=== PATIENT | female | born 1975 | race Caucasian/White ===

== ENCOUNTER → 2016-11-21 | Outpatient (CLI) | payer OTHER | LOC: FIMAGING 12:18 | PROVIDERS: ATTEND Obstetrics & Gynecology | DX: O09.522 Supervision of elderly multigravida, second trimester (principal); Z3A.19 19 weeks gestation of pregnancy ==

== ENCOUNTER → 2017-02-06 | Outpatient (CLI) | payer OTHER | LOC: FIMAGING 12:16 | PROVIDERS: ATTEND Obstetrics & Gynecology | DX: O09.523 Supervision of elderly multigravida, third trimester (principal); Z3A.30 30 weeks gestation of pregnancy; Z87.59 Personal history of other complications of pregnancy, childbirth and the puerperium ==

== ENCOUNTER → 2017-03-06 | Outpatient (CLI) | payer OTHER | LOC: FIMAGING 11:35 | PROVIDERS: ATTEND Obstetrics & Gynecology | DX: O09.523 Supervision of elderly multigravida, third trimester (principal); Z3A.34 34 weeks gestation of pregnancy ==

== ENCOUNTER 2017-04-04 18:50 | Inpatient (IN) | payer OTHER ==
--- NOTE | 2017-04-04 20:15 | SOAPPROG ---
SOAP Progress Note Assessment/Plan: Assessment: 41 yo @ 38.3 weeks presents with bleeding following cervical exam and contractions. She is here for a labor check. Plan: Patient will have NST, she may go for a walk, cervix will be re-evaluated following 1-2 hours. 04/04/17 20:11 Subjective: Patient reports that she had clinic appointment at 4PM today with Dr. Castillo. Dr. Castillo "stripped membranes." Since appointment, patient reports small amount of vaginal bleeding and cramping. Objective: FHR: 130, cat I [place]: q4min Physical Exam - Physical Exam General Appearance: alert, no apparent distress Neck: supple Respiratory: lungs clear, normal breath sounds Cardiac/Chest: regular rate, rhythm Abdomen: normal bowel sounds, non-tender Pelvic Exam: other (CE:4-5cm/50%/-3/posterior) Rectal: deferred Skin: normal color, warm/dry ICD10 Worksheet Patient Problems: Problems Problem Status Onset Irregular contractions Acute - ICD10 Problem Qualifiers (1) Irregular contractions
[2017-04-04] MEDS ORDERED: EPSOM SALT 454 GM TP PRN (21:44)
[2017-04-04] MEDS ORDERED: TERBUTALINE SULFATE 1 MG/ML VIAL IV PRN (21:44)
[2017-04-04] MEDS ORDERED: OLIVE OIL 118 ML BTL MISC PRN (21:44)
[2017-04-04] MEDS ORDERED: LR 1,000 ML IV PRN (21:44)
[2017-04-04] MEDS ORDERED: OXYTOCIN 20 UNIT in LR 1,000 ML IV PRN (21:44)
[2017-04-04 21:55] LABS: % IMMATURE GRANULYOCYTES 0.4 % (0.0-1.1); ABSOLUTE IMMATURE GRANULOCYTES 0.04 10^3/uL (0.00-0.10); ADD DIFF? NO; ADD MORPH? NO; ADD SCAN? NO; ATYPICAL LYMPHOCYTE FLAG 10 (0-99); FRAGMENT RBC FLAG 0 (0-99); HEMOGLOBIN 13.4 g/dL (12.6-16.3); LEFT SHIFT FLG 0 (0-99); LIPEMIA HEMOLYSIS FLAG 90 (0-99); MEAN CELL HEMOGLOBIN 32.3 pg (27.9-34.1); MEAN CELL HEMOGLOBIN CONCENTR. 35.3 g/dL (32.4-36.7); MEAN CELL VOLUME 91.6 fL (81.5-99.8); MEAN PLATELET VOLUME 12.6 fL (8.7-11.7); PLATELET CLUMPS FLAG 20 (0-99); PLATELET COUNT 139 10^3/uL (150-400); RED BLOOD CELL COUNT 4.15 10^6/uL (4.18-5.33); RED CELL DISTRIBUTION WIDTH 13.2 % (11.5-15.2)
--- NOTE | 2017-04-04 22:04 | PDGENHP ---
History and Physical - Chief Complaint contractions, bloody show - History of Present Illness 41-year-old @ 38.3 weeks gestation (EDC 04/15/17 ) who presents with contractions and bloody show following clinic visit and cervical exam with Dr. Castillo today. Current is complicated by advance maternal age, hypothyroidism (Levothyroxine) and depression (Wellbutrin). Prior complicated by HELLP (delivered at 36.6 weeks, induction). O+ / Antibody screen negative / RPR NR / Rubella Immune / HBsAg Neg / HIV Neg / Pap Neg / GC Neg/ Neg / MSAFP Neg / cfDNA Neg / 1 Hr GTT 104 / GBS Negative. History Information - Allergies/Home Medication List Allergies/Adverse Reactions: No Known Allergies Allergy (Verified 12/06/14 08:17) Home Medications: Wellbutrin Xl 12/18/13 [Last Taken Unknown] Loestrin 21 1-20 Tablet 12/06/14 [Last Taken Unknown] I have personally reviewed and updated: family history, medical history, social history, surgical history - Past Medical History no pertinent PMH - Surgical History Reports: no pertinent surgical hx - Family History Positive for: non-pertinent - Social History Smoking Status: Never smoked Alcohol Use: None Drug Use: None Review of Systems Review of Systems: ROS: 10pt was reviewed & negative except for what was stated in HPI & below Physical Exam Physical Exam: Constitutional: no apparent distress, not in pain Ears, Nose, Mouth, Throat: moist mucous membranes Cardiovascular: regular rate and rhythym, no murmur, rub, or gallop Respiratory: no respiratory distress, no rales or rhonchi, clear to auscultation Gastrointestinal: normoactive bowel sounds, soft, non-tender abdomen Genitourinary: other (CE: 5-6cm/75%/-3) Skin: warm, normal color Musculoskeletal: full muscle strength, no muscle tenderness Neurologic: AAOx3, sensation intact bilaterally, weakness Psychiatric: interacting appropriately, not anxious Lab Data & Imaging Review 04/04/17 21:45 Assessment & Plan Assessment: 41 yo @ 38.3 with labor, GBS negative. Plan: 1. Admit for labor 2. Epidural PRN 3. GBS negative 4. AMA - negative genetic screen, normal surveillance 5. H/o HELLP, uncomplicated current , will check labs
[2017-04-04] MEDS ORDERED: ACETAMINOPHEN 325 MG TAB PO PRN (22:07)
[2017-04-04] MEDS ORDERED: TERBUTALINE SULFATE 1 MG/ML VIAL ONE (22:50)
[2017-04-04] MEDS ORDERED: AMMONIA AROMATIC 1 EACH AMP IH ONE (22:50)
[2017-04-04] MEDS ORDERED: LIDOCAINE 1% 300 MG/30 ML SDV ONE (22:50)
[2017-04-04] MEDS ORDERED: OLIVE OIL 118 ML BTL ONE (22:50)
[2017-04-04] MEDS ORDERED: OXYTOCIN 10 UNIT/ML VIAL ONE (22:51)
[2017-04-04] MEDS ORDERED: MISOPROSTOL 200 MCG TAB ONE (22:52)
--- NOTE | 2017-04-05 05:40 | OBPROG ---
Labor Progress Note Assessment/Plan: Assessment: 41 yo @ 38.3 weeks presents with bleeding following cervical exam and contractions. She is here for a labor check. Plan: Patient will have NST, she may go for a walk, cervix will be re-evaluated following 1-2 hours. 04/04/17 20:11 04/05/17 05:38 Plan for epidural then AROM Subjective/Intrapartum Course: 04/05/17 05:38 Feels more pressure and pain in back. Requesting epidural. Objective: 04/04/17 21:45 Patient ABO/Rh O POSITIVE 04/04/17 21:45 - SVE Dilation (cm): 7 Effacement (%): 90 Station: -1 Membranes: Intact - FHR Assessment Perry FHR (bpm): 120 FHR Pattern Variability: Moderate FHR Category: 1 Oxytocin Orders Assessment - Pre-Induction/Augmentation Assessment Gestational Age: 38 week(s) and 3 day(s) ICD10 Worksheet Patient Problems: Problems Problem Status Onset Irregular contractions Acute - ICD10 Problem Qualifiers (1) Irregular contractions
[2017-04-05] MEDS ORDERED: PHENYLEPHRINE HCL 100 MCG/ML SYR ONE (05:50)
[2017-04-05] MEDS ORDERED: BUPIVACAINE 0.25% 30 ML SDV ONE (05:50)
[2017-04-05] MEDS ORDERED: fentaNYL 2MCG/ML/BUP 0.1% RTU 100 ML BAG EP ONE (05:50)
[2017-04-05] MEDS ORDERED: fentaNYL 100 MCG/2 ML INJ ONE (05:51)
--- NOTE | 2017-04-05 06:55 | PREANESOB ---
Obstetric Pre-Anesthesia Info - General Info Proposed Procedure: Labor and delivery. : 3 Para: 3 TERI: 04/15/17 Gestational Age: 38 week(s) and 3 day(s) - Info Status: Full Term Monitors: External FHR Baseline (bpm): 135 FHR Pattern: Reassuring - Labor Status Cervical Dilation per last OB SVE: 7 Station per last OB SVE: -1 Indications for Labor Analgesia: Pain Control Labor Epidural: Proposed Anesthesia ROS: Prior labor epidural x 2. Prior general anesthesia x2 for foot surgery. On thyroid supplement. Allergies/Adverse Reactions: Allergy/AdvReac Type Severity Reaction Status Date / Time No Known Allergies Allergy Verified 12/06/14 08:17 Home Medications: Medication Instructions Recorded Wellbutrin Xl 12/18/13 Cephalexin [Keflex] 500 mg PO QID #28 cap 12/06/14 Loestrin 21 1-20 Tablet 12/06/14 Visit Medications: Generic Name Dose Route Start Last Admin Trade Name Freq PRN Reason Stop Dose Admin Acetaminophen 325 - 650 mg 04/04/17 22:07 04/04/17 22:14 Tylenol PO 10/01/17 22:06 650 mg Q3HRS PRN Administration Pain, Mild Lactated Ringer's 1,000 mls @ 0 mls/hr 04/04/17 21:44 Lr IV 10/01/17 21:43 PRN PRN SEE PROTOCOL CONDITIONS Protocol Per Protocol Oxytocin 20 unit/ Lactated 1,002 mls @ 150 mls/hr 04/04/17 21:44 Ringer's IV PRN PRN Post- bleeding Ibuprofen 600 mg 04/04/17 21:44 Motrin PO 10/01/17 21:43 Q6HRS PRN post , inflammation Magnesium Sulfate 454 gm 04/04/17 21:44 Epsom Salt TP 10/01/17 21:43 Q1H PRN perineal discomfort [place] Oil 118 ml 04/04/17 21:44 Sweet Oil MISC 10/01/17 21:43 ONCE PRN perineal massage Terbutaline Sulfate 0.25 mg 04/04/17 21:44 Brethine IV 10/01/17 21:43 ONCE PRN Tachysystole Discontinued Medications Generic Name Dose Route Start Last Admin Trade Name Freq PRN Reason Stop Dose Admin Ammonia (Aromatic Spirit) Confirm 04/04/17 22:50 Ammonia Aromatic Administered 04/04/17 22:51 Dose 1 each IH .STK-MED ONE Bupivacaine HCl Confirm 04/05/17 05:50 Sensorcaine 0.25% Sdv Administered 04/05/17 05:51 Dose 30 ml .ROUTE .STK-MED ONE Ephedrine Sulfate Confirm 04/04/17 22:50 Ephedrine Sulfate Administered 04/04/17 22:51 Dose 50 mg .ROUTE .STK-MED ONE Fentanyl Confirm 04/05/17 05:51 Sublimaze Administered 04/05/17 05:52 Dose 100 mcg .ROUTE .STK-MED ONE Fentanyl/Bupivacaine HCl Confirm 04/05/17 05:50 Fentanyl/Bupivacaine/Ns 2 Mcg/Ml 0.1% (Premix Administered 04/05/17 05:51 Dose 100 ml EP .STK-MED ONE Lidocaine HCl Confirm 04/04/17 22:50 Lidocaine Hcl 1% Administered 04/04/17 22:51 Dose 300 mg .ROUTE .STK-MED ONE Misoprostol Confirm 04/04/17 22:52 Cytotec Administered 04/04/17 22:53 Dose 1,000 mcg .ROUTE .STK-MED ONE [place] Oil Confirm 04/04/17 22:50 Sweet Oil Administered 04/04/17 22:51 Dose 118 ml .ROUTE .STK-MED ONE Oxytocin Confirm 04/04/17 22:51 Pitocin Administered 04/04/17 22:52 Dose 40 unit .ROUTE .STK-MED ONE Phenylephrine HCl Confirm 04/05/17 05:50 Neosynephrine Administered 04/05/17 05:51 Dose 1,000 mcg .ROUTE .STK-MED ONE Terbutaline Sulfate Confirm 04/04/17 22:50 Brethine Administered 04/04/17 22:51 Dose 1 mg .ROUTE .STK-MED ONE - Anesthesia History Response to Local Anesthetics: Normal Anesthesia & Operative History: No Prior Problems Family Anesthesia History: Negative - Social History Substance Use/Abuse: Denies - Vital Signs Blood Pressure: 107/71 Heart Rate: 84 Height/Weight (Nursing): Height 170.18 cm Weight 70.307 kg - Focused Exam Neck exam: FROM Mallampati Score: Class 1 Mouth exam: normal dental/mouth exam Pulmonary: no respiratory distress Cardiovascular: regular rate and rhythym Labs: 04/04/17 21:45 Patient ABO/Rh O POSITIVE 04/04/17 21:45 - Plan Anesthetic Plan: JANE Consent Signed and on Chart: Yes Patient/Guardian Understands and Agrees to Plan: Yes Urgent/Emergent Case: Anes eval completed preop but documented later for safe timely pt care
[2017-04-05] MEDS ORDERED: fentaNYL 2MCG/ML/BUP 0.1% RTU 100 ML EP SCH (07:00)
[2017-04-05] MEDS ORDERED: ONDANSETRON 4 MG/2 ML VIAL IVP PRN ×2 (07:00→07:36)
[2017-04-05] MEDS ORDERED: PHENYLEPHRINE HCL 100 MCG/ML SYR IVP PRN (07:00)
[2017-04-05] MEDS ORDERED: LR 500 ML IV SCH (07:00)
--- NOTE | 2017-04-05 07:00 | POSTANESTH ---
Post Anesthetic Evaluation Cardiovascular Status: Normal, Stable, Similar to Pre-Op Cond Respiratory Status: Normal, Stable, Similar to Pre-op Cond. Level of Consciousness/Mental Status: Can Participate in Eval, Alert and Oriented Pain Control: Adequate, Prn Tx Ordered Nausea/Vomiting Control: Adequate, Prn Tx Ordered Complications Possibly Related to Anesthesia: None Noted
--- NOTE | 2017-04-05 08:55 | OBPROG ---
Labor Progress Note Assessment/Plan: Assessment: 41 y/o @ 38 4/7 wks in active labor Plan: s/p epidural, pt is comfortable FHTs - Cat I tracing Will have pt labor down Anticipate 04/05/17 08:49 Subjective/Intrapartum Course: 04/05/17 05:38 Feels more pressure and pain in back. Requesting epidural. 04/05/17 09:14 s/p epidural, pt is comfortable Objective: 04/04/17 21:45 Patient ABO/Rh O POSITIVE 04/04/17 21:45 Temp Pulse Resp BP Pulse Ox 84 107/71 04/05/17 06:59 04/05/17 06:59 - SVE Dilation (cm): 10 Effacement (%): 100 Station: +1 Membranes: AROM Amniotic Fluid Color: Clear - Contraction Pattern Assessment Current Contraction Pattern: Regular, Irregular - FHR Assessment Perry FHR (bpm): 140 FHR Pattern Variability: Moderate FHR Category: 1 - Procedures Non-surgical Procedures: Amniotomy Oxytocin Orders Assessment - Pre-Induction/Augmentation Assessment Gestational Age: 38 week(s) and 3 day(s) ICD10 Worksheet Patient Problems: Problems Problem Status Onset Irregular contractions Acute
[2017-04-05] MEDS ORDERED: SIMETHICONE 80 MG TAB CHEW PO PRN (10:05)
[2017-04-05] MEDS ORDERED: DOCUSATE SODIUM 100 MG CAP PO PRN (10:05)
[2017-04-05] MEDS ORDERED: HYDROCORTISONE 0.5% CREAM TP PRN (10:05)
[2017-04-05] MEDS ORDERED: HYDROCODONE/APAP 5/325 TAB PO PRN (10:05)
[2017-04-05] MEDS ORDERED: IBUPROFEN 600 MG TAB PO PRN (10:06)
--- NOTE | 2017-04-05 10:09 | OBDEL ---
Info Type: Vaginal Presentation at Delivery: Vertex L&D Analgesia/Anesthesia Type: Epidural GBS+: No Intrapartum Medications: Generic Name Dose Route Start Last Admin Trade Name Freq PRN Reason Stop Dose Admin Acetaminophen 325 - 650 mg 04/04/17 22:07 04/04/17 22:14 Tylenol PO 10/01/17 22:06 650 mg Q3HRS PRN Administration Pain, Mild - Hospital Course Intrapartum: 04/05/17 05:38 Feels more pressure and pain in back. Requesting epidural. 04/05/17 09:14 s/p epidural, pt is comfortable Indications for Delivery: Spontaneous Labor Vaginal Delivery - Delivery Provider Delivery Physician/CNM: Mable Becerril - Labor and Delivery Onset of Contractions Date: 04/04/17 Onset of Contractions Time: 17:00 Onset of Contractions Type: Spontaneous Rupture of Membranes Date: 04/05/17 Rupture of Membranes Time: 07:00 Rupture of Membranes Type: Artificial Amniotic Fluid Color: Clear Dilation Complete Date: 04/05/17 Dilation Complete Time: 08:40 Placenta Delivery Date: 04/05/17 Placenta Delivery Time: 09:48 Total Hours of Labor: 16 Non-surgical Procedures: Amniotomy Laceration: 2nd Degree Repair: 3-0, Vicryl Vaginal Sponge Count Correct: Yes Vaginal Needle Count Correct: Yes Vaginal Sweep Performed: Yes EBL: 400 cc Delivery Events: Nuchal Cord (Loose x 1- slipped over perineum), Other (Specify ) (True knot) Delivery Comment: Uterus was boggy after delivery of placenta with brisk bleeding. IM Pitocin was given as well as 800 mcg Cytotec NH. Uterus became firm and less bleeding noted. [place] Data [place] Delivery Date: 04/05/17 Delivery Time: 09:40 TERI: 04/15/17 Gestational Age: 38 week(s) and 4 day(s) Sex of Infant: Male Score (1 Min): 9 Score (5 Min): 9 ICD10 Worksheet Patient Problems: Problems Problem Status Onset Irregular contractions Acute (spontaneous vaginal delivery) Acute - ICD10 Problem Qualifiers (1) (spontaneous vaginal delivery)
[2017-04-05] MEDS: IBUPROFEN 600 MG TAB PO PRN ×3 (10:23→22:53)
[2017-04-05 20:44] VITALS: PULSE 73; RESP 16; O2SAT 97
[2017-04-06] MEDS: IBUPROFEN 600 MG TAB PO PRN ×2 (04:59→11:33)
[2017-04-06 10:23] VITALS: BP 101/64; TEMP 98
--- NOTE | 2017-04-06 11:53 | OBGCSDC ---
General Delivery Information - General Info : 3 Para: 4 Abortions: 0 Type: Vaginal L&D Analgesia/Anesthesia Type: Epidural Admission Date: 04/04/17 Labs: Patient ABO/Rh O POSITIVE 04/04/17 21:45 Hct 38.0 % (38.0-47.0) 04/04/17 21:45 - Hospital Course Intrapartum: 04/05/17 05:38 Feels more pressure and pain in back. Requesting epidural. 04/05/17 09:14 s/p epidural, pt is comfortable : 04/06/17 11:48 S) Pt doing well, she denies any heavy bleeding. 04/06/17 14:47 (late entry from 9:45am) S)Pt doing well, denies any pain or heavy bleeding. She is . She desires d/c home at this time. O) constitutional: WNWF, A&Ox3 heart: RRR, no murmur Chest: CTA-B Abdomen: soft, nontender uterus: firm @ U-2 perineum: healing well lochia: min rubra extremities: WNL, neg edema, neg negro's sign neuro: grossly normal A) [id number] s/p PPD#1 P) d/c home at this time routine PP care pelvic rest x 6 weeks cont danger S&S discussed RTO at 4/6 weeks Vaginal - Delivery Provider Delivery Physician/CNM: Mable Becerril - Diagnosis Labor: Spontaneous Rupture of Membranes Type: Artificial Amniotic Fluid Color: Clear Laceration: 2nd Degree Repair: 3-0, Vicryl Delivery Events: Nuchal Cord (Loose x 1- slipped over perineum), Other (Specify ) (True knot) - Procedures Non-surgical Procedures: Amniotomy - Delivery Non-surgical Procedures: Amniotomy EBL: 400 cc [place] Data [place] Delivery Date: 04/05/17 Delivery Time: 09:40 TERI: 04/15/17 Gestational Age: 38 week(s) and 5 day(s) Sex of : Male Weight (gm): 2800 g Score (1 Min): 9 Score (5 Min): 9 Discharge Information - Discharge Information Prescriptions: Ibuprofen [Motrin (*)] 600 mg PO Q6HRS PRN #30 tab PRN Reason: Pain, Inflammatory Condition: Good Instruction/Follow Up: Four Weeks, Six Weeks
== END 2017-04-06 12:00 | disposition home or self-care (01) | DRG 775 ==
LOC: OBSVTOIN 18:50 → FLD 18:50 → FOB 04-05 14:43
PROVIDERS: ADMIT Obstetrics & Gynecology Gynecology; ATTEND Obstetrics & Gynecology
DX: O70.1 Second degree perineal laceration during delivery (principal); O69.2XX0 Labor and delivery complicated by other cord entanglement, with compression, not applicable or unspecified; O69.81X0 Labor and delivery complicated by cord around neck, without compression, not applicable or unspecified; O99.284 Endocrine, nutritional and metabolic diseases complicating childbirth; E03.9 Hypothyroidism, unspecified; O99.344 Other mental disorders complicating childbirth; F32.9 Major depressive disorder, single episode, unspecified; Z3A.38 38 weeks gestation of pregnancy; Z37.0 Single live birth
CPT/HCPCS: J2370; J2405; J3010; J3105

== ENCOUNTER → 2018-02-19 | Outpatient (CLI) | payer OTHER | LOC: FIMAGING 11:07 | PROVIDERS: ATTEND Internal Medicine | DX: Z12.31 Encounter for screening mammogram for malignant neoplasm of breast (principal) ==